=== PATIENT | male | born 1995 | race Two or more races ===

== ENCOUNTER → 2021-04-09 | Emergency (ER) | payer OTHER ==
[~2021-04-09] VITALS: Ht 165.1 cm; Wt 54.4 kg
== END | disposition home or self-care (01) ==
LOC: ER 17:49
DX: T14.8XXA Other injury of unspecified body region, initial encounter (principal); V49.88XA Car occupant (driver) (passenger) injured in other specified transport accidents, initial encounter; Y93.89 Activity, other specified; Y92.488 Other paved roadways as the place of occurrence of the external cause; Y99.8 Other external cause status

== ENCOUNTER → 2023-11-11 | Emergency (ER) | payer OTHER ==
[~2023-11-11] VITALS: Ht 167.6 cm; Wt 56.7 kg
[~2023-11-11] MED LIST: ACETAMINOPHEN 325 MG TABLET PO STA
== END | disposition home or self-care (01) ==
LOC: ER 08:57
DX: M79.672 Pain in left foot (principal); Z88.6 Allergy status to analgesic agent